=== PATIENT | male | born 1990 | race Two or more races ===

== ENCOUNTER 2018-11-22 17:01 | Emergency (ER) | payer SELFPAY ==
[~2018-11-22] VITALS: Ht 165.1 cm; Wt 68.0 kg
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
[2018-11-22] MEDS ORDERED: NAPR-514 PO (20:09)
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
[2018-11-22 20:10] VITALS: BP 154/90
== END 2018-11-22 20:16 | disposition home or self-care (01) ==
LOC: ER 17:01
DX: S20.212A Contusion of left front wall of thorax, initial encounter (principal); V43.62XA Car passenger injured in collision with other type car in traffic accident, initial encounter; Y93.89 Activity, other specified; Y92.410 Unspecified street and highway as the place of occurrence of the external cause; Y99.8 Other external cause status
CPT/HCPCS: 71101; 99283